=== PATIENT | female | born 1980 | race Caucasian/White ===

== ENCOUNTER 2018-01-29 19:18 | Emergency (ER) | payer MEDICAID, OTHER ==
[2018-01-29] MEDS: ALBUTEROL 0.083% (NEB) 2.5 MG/3 ML AMP HHN (20:35)
[2018-01-29] MEDS: IPRATROPIUM (NEB) 0.5 MG/2.5 ML AMP HHN (20:35)
[2018-01-29] MEDS: METHYLPREDNISOLONE 125 MG INJ IM (20:45)
== END 2018-01-29 21:11 | disposition home or self-care (01) ==
LOC: FTE 21:11
DX: J45.901 Unspecified asthma with (acute) exacerbation (principal)
CPT/HCPCS: 71046; 94664; 96372; 99284-25

== ENCOUNTER 2018-12-10 11:48 | Emergency (ER) | payer SELFPAY, MEDICAID ==
[2018-12-10] MEDS: ACETAMINOPHEN 325 MG TAB PO (12:46)
== END 2018-12-10 13:14 | disposition home or self-care (01) ==
LOC: FTE 11:48
DX: R20.0 Anesthesia of skin (principal); J45.909 Unspecified asthma, uncomplicated
CPT/HCPCS: 99282